=== PATIENT | male | born 1975 | race Caucasian/White ===

== ENCOUNTER → 2016-11-13 | Outpatient (CLI) | payer OTHER ==
[2016-11-13 12:59] LABS: ALBUMIN 4.2 GM/DL (3.2-5.2); ALBUMIN/GLOBULIN RATIO 1.27 (1.00-1.93); ALKALINE PHOSPHATASE 58 U/L (45-117); ALT/SGPT 51 U/L (12-78); ANION GAP 5 MEQ/L (8-16); AST/SGOT 24 U/L (15-37); BILIRUBIN,TOTAL 0.5 MG/DL (0.2-1.0); BLOOD UREA NITROGEN 18 MG/DL (7-18); CALCIUM LEVEL 9.1 MG/DL (8.5-10.1); CARBON DIOXIDE LEVEL 32 MEQ/L (21-32); CHLORIDE LEVEL 106 MEQ/L (98-107); CHOLESTEROL LEVEL 174 MG/DL (<200); CREATININE FOR GFR 1.01 MG/DL (0.70-1.30); GLOMERULAR FILTRATION RATE > 60.0 (>60); GLUCOSE, FASTING 113 MG/DL (70-105); MAGNESIUM LEVEL 2.2 MG/DL (1.8-2.4); POTASSIUM SERUM 4.4 MEQ/L (3.5-5.1); SODIUM LEVEL 143 MEQ/L (136-145); TOTAL PROTEIN 7.5 GM/DL (6.4-8.2); TRIGLYCERIDES LEVEL 209 MG/DL (<150); URIC ACID 8.8 MG/DL (3.5-7.2)
== END ==
LOC: M WUC 09:55
PROVIDERS: ATTEND Physician Assistant
DX: I10 Essential (primary) hypertension (principal)

== ENCOUNTER → 2016-12-02 | Outpatient (CLI) | payer OTHER | LOC: M WUC 11:20 | PROVIDERS: ATTEND Physician Assistant | DX: R73.02 Impaired glucose tolerance (oral) (principal); E79.0 Hyperuricemia without signs of inflammatory arthritis and tophaceous disease; I10 Essential (primary) hypertension ==

== ENCOUNTER → 2016-12-02 | Outpatient (CLI) | payer OTHER | LOC: M WUC 11:15 | PROVIDERS: ATTEND Urology | DX: Z12.5 Encounter for screening for malignant neoplasm of prostate (principal) ==

== ENCOUNTER → 2017-07-05 | Outpatient (CLI) | payer OTHER ==
[2017-07-05 16:52] LABS: HEMATOCRIT 43.2 % (42.0-52.0); HEMOGLOBIN 14.3 g/dl (14.0-18.0); MEAN CORPUSCULAR HGB CONC 33.1 g/dl (32.0-36.5); MEAN CORPUSCULAR VOLUME 84.7 fl (80.0-96.0); PLATELET COUNT, AUTOMATED 290 10^3/uL (150-450); RED CELL DISTRIBUTION WIDTH 12.3 % (11.5-14.5); WHITE BLOOD COUNT 7.2 10^3/uL (4.0-10.0)
[2017-07-05 17:30] LABS: ERYTHROCYTE SEDIMENTATION RATE 6 mm/hr (0-15)
[2017-07-05 17:34] LABS: ALBUMIN 4.2 GM/DL (3.2-5.2); ALBUMIN/GLOBULIN RATIO 1.35 (1.00-1.93); ALKALINE PHOSPHATASE 57 U/L (45-117); ALT/SGPT 48 U/L (12-78); ANION GAP 5 MEQ/L (8-16); AST/SGOT 19 U/L (7-37); BILIRUBIN,TOTAL 0.4 MG/DL (0.2-1.0); BLOOD UREA NITROGEN 15 MG/DL (7-18); C REACTIVE PROTEIN QUANTITATIV < 0.30 MG/DL (0.00-0.30); CALCIUM LEVEL 9.2 MG/DL (8.5-10.1); CARBON DIOXIDE LEVEL 31 MEQ/L (21-32); CHLORIDE LEVEL 106 MEQ/L (98-107); CHOLESTEROL LEVEL 183 MG/DL (<200); CHOLESTEROL RISK RATIO 3.588 (<5); CREATININE FOR GFR 0.98 MG/DL (0.70-1.30); FREE T4 0.76 NG/DL (0.76-1.46); GLOMERULAR FILTRATION RATE > 60.0 (>60); GLUCOSE, FASTING 102 MG/DL (70-100); HDL CHOLESTEROL 51 MG/DL (>40); LDL CHOLESTEROL 58.4 MG/DL (<100); NON-HDL-C 132 MG/DL; POTASSIUM SERUM 4.3 MEQ/L (3.5-5.1); RHEUMATOID FACTOR QUANT < 10.0 IU/ML (0-15.0); SODIUM LEVEL 142 MEQ/L (136-145); THYROID STIMULATING HORMONE 0.877 uIU/ML (0.358-3.740); TOTAL PROTEIN 7.3 GM/DL (6.4-8.2); TRIGLYCERIDES LEVEL 368 MG/DL (<150)
[2017-07-05 17:36] LABS: TOTAL 25(OH) VITAMIN D 31.6 NG/ML (30.0-100.0)
[2017-07-08 00:06] LABS: CYCLIC CITRULLINATED PEPTIDE 5 units (0-19)
[2017-07-08 00:06] LABS: ANTI DOUBLE STRAND-DNA AB <1 IU/mL (0-9); ANTINUCLEAR ANTIBODIES DIRECT Positive (Negative); RNP ANTIBODIES <0.2 AI (0.0-0.9); SJOGREN'S ANTI SS-A 0.3 AI (0.0-0.9); SJOGREN'S ANTI SS-B 1.4 AI (0.0-0.9); SMITH ANTIBODIES <0.2 AI (0.0-0.9); TESTOSTERONE FREE (DIRECT) 6.8 pg/mL (6.8-21.5)
== END ==
LOC: M WUC 10:58
DX: I10 Essential (primary) hypertension (principal); M79.671 Pain in right foot; E55.9 Vitamin D deficiency, unspecified
CPT/HCPCS: 84403

== ENCOUNTER → 2017-09-15 | Outpatient (CLI) | payer OTHER ==
[2017-09-15 15:07] LABS: BASO # 0.1 10^3/uL (0.0-0.2); EOS # 0.2 10^3/uL (0.0-0.50); EOS % 2.8 % (0.0-3.0); HEMATOCRIT 42.3 % (42.0-52.0); HEMOGLOBIN 14.3 g/dl (13.5-17.5); IMMATURE GRANULOCYTE % 0.3 % (0-3.0); LYMPH # 2.3 10^3/uL (1.5-4.5); LYMPH % 32.7 % (24.0-44.0); MEAN CORPUSCULAR HEMOGLOBIN 28.6 pg (27.0-33.0); MEAN CORPUSCULAR HGB CONC 33.8 g/dl (32.0-36.5); MEAN CORPUSCULAR VOLUME 84.6 fl (80.0-96.0); MONO # 0.6 10^3/uL (0.0-0.8); MONO % 8.4 % (0.0-5.0); NEUTROPHILS # 3.8 10^3/uL (1.8-7.7); NEUTROPHILS % 54.8 % (36.0-66.0); PLATELET COUNT, AUTOMATED 289 10^3/uL (150-450); RED CELL DISTRIBUTION WIDTH 12.3 % (11.5-14.5); WHITE BLOOD COUNT 6.9 10^3/uL (4.0-10.0)
[2017-09-15 15:27] LABS: ALBUMIN 4.3 GM/DL (3.2-5.2); ALBUMIN/GLOBULIN RATIO 1.39 (1.00-1.93); ALKALINE PHOSPHATASE 56 U/L (45-117); ALT/SGPT 61 U/L (12-78); ANION GAP 6 MEQ/L (8-16); AST/SGOT 28 U/L (7-37); BILIRUBIN,TOTAL 0.6 MG/DL (0.2-1.0); BLOOD UREA NITROGEN 15 MG/DL (7-18); CARBON DIOXIDE LEVEL 30 MEQ/L (21-32); CHLORIDE LEVEL 104 MEQ/L (98-107); CK-MB VALUE MASS 2.4 NG/ML (<3.6); CPK CREATINE PHOSPHOKINASE 383 U/L (39-308); CREATININE FOR GFR 0.94 MG/DL (0.70-1.30); FREE T4 0.94 NG/DL (0.76-1.46); GLOMERULAR FILTRATION RATE > 60.0 (>60); GLUCOSE, FASTING 135 MG/DL (70-100); MB/CK RELATIVE INDEX 0.62 (< OR =4); POTASSIUM SERUM 4.4 MEQ/L (3.5-5.1); SODIUM LEVEL 140 MEQ/L (136-145); THYROID STIMULATING HORMONE 0.648 uIU/ML (0.358-3.740); TOTAL PROTEIN 7.4 GM/DL (6.4-8.2)
[2017-09-15 16:16] LABS: TROPONIN I < 0.02 NG/ML (< 0.10)
[2017-09-15 16:23] LABS: ERYTHROCYTE SEDIMENTATION RATE 3 mm/hr (0-15)
== END ==
LOC: M WUC 12:49
DX: R07.9 Chest pain, unspecified (principal)
CPT/HCPCS: 82550

== ENCOUNTER → 2017-09-26 | Outpatient (CLI) | payer OTHER ==
[2017-09-26 17:20] LABS: URIC ACID 5.8 MG/DL (3.5-7.2)
== END ==
LOC: M WUC 13:25
DX: M79.671 Pain in right foot (principal)
CPT/HCPCS: 84550

== ENCOUNTER → 2018-03-10 | Outpatient (CLI) | payer OTHER ==
[2018-03-10 14:07] LABS: ERYTHROCYTE SEDIMENTATION RATE 7 mm/hr (0-15)
[2018-03-12 00:08] LABS: TESTOSTERONE FREE (DIRECT) 5.4 pg/mL (6.8-21.5)
== END ==
LOC: M WUC 12:01
DX: E29.1 Testicular hypofunction (principal); G89.29 Other chronic pain
CPT/HCPCS: 84403

== ENCOUNTER → 2018-03-10 | Outpatient (CLI) | payer OTHER ==
[2018-03-10 13:50] LABS: URIC ACID 7.4 MG/DL (3.5-7.2)
== END ==
LOC: M WUC 11:56
DX: M10.072 Idiopathic gout, left ankle and foot (principal)
CPT/HCPCS: 84550

== ENCOUNTER → 2018-08-09 | Outpatient (CLI) | payer OTHER ==
[~2018-08-09] MED LIST: BENA10TA PO; OMEP40CA2 PO; RANI150T PO; VIIB40TA PO; ZYRT10CA PO
[2018-08-09 17:15] LABS: ALBUMIN 4.3 GM/DL (3.2-5.2); ALT/SGPT 61 U/L (12-78); BILIRUBIN,DIRECT < 0.1 MG/DL (0.0-0.2); BILIRUBIN,TOTAL 0.4 MG/DL (0.2-1.0); TOTAL PROTEIN 7.2 GM/DL (6.4-8.2)
[2018-08-09 17:34] LABS: HEMATOCRIT 46.4 % (42.0-52.0); HEMOGLOBIN 14.9 g/dl (13.5-17.5)
[2018-08-12 00:06] LABS: TESTOSTERONE FREE (DIRECT) 5.7 pg/mL (6.8-21.5)
== END ==
LOC: M WUC 10:38
PROVIDERS: ATTEND Nurse Practitioner Family
DX: E29.1 Testicular hypofunction (principal)

== ENCOUNTER → 2019-05-17 | Outpatient (CLI) | payer OTHER ==
[~2019-05-17] MED LIST changes: -OMEP40CA2 PO; +OMEP40CA97 PO
== END ==
LOC: M WUC 14:36
PROVIDERS: ATTEND Nurse Practitioner Family
DX: E29.1 Testicular hypofunction (principal)

== ENCOUNTER → 2019-07-10 | Outpatient (CLI) | payer OTHER ==
[2019-07-10 15:36] LABS: HEMATOCRIT 42.8 % (42.0-52.0); HEMOGLOBIN 14.1 g/dl (13.5-17.5)
== END ==
LOC: M WUC 13:59
PROVIDERS: ATTEND Nurse Practitioner Family
DX: E29.1 Testicular hypofunction (principal)

== ENCOUNTER → 2019-10-30 | Outpatient (CLI) | payer OTHER ==
[2019-10-30 16:33] LABS: HEMATOCRIT 47.1 % (42.0-52.0); HEMOGLOBIN 15.6 g/dl (13.5-17.5)
[2019-11-01 15:07] LABS: TESTOSTERONE FREE (DIRECT) 3.3 pg/mL (6.8-21.5)
== END ==
LOC: M WUC 12:10
PROVIDERS: ATTEND Nurse Practitioner Family
DX: E29.1 Testicular hypofunction (principal); Z12.5 Encounter for screening for malignant neoplasm of prostate

== ENCOUNTER → 2020-12-10 | Outpatient (CLI) | payer OTHER ==
[~2020-12-10] MED LIST changes: +OMEP40CA4 PO; -OMEP40CA97 PO
[2020-12-10 13:23] LABS: HEMATOCRIT 45.4 % (42.0-52.0); HEMOGLOBIN 15.2 g/dl (13.5-17.5)
[2020-12-11 19:06] LABS: TESTOSTERONE FREE (DIRECT) 2.2 pg/mL (6.8-21.5)
== END ==
LOC: M WUC 09:55
PROVIDERS: ATTEND Nurse Practitioner Family
DX: E29.1 Testicular hypofunction (principal)

== ENCOUNTER → 2021-07-22 | Outpatient (CLI) | payer OTHER ==
[2021-07-22 12:52] LABS: HEMATOCRIT 45.5 % (42.0-52.0); HEMOGLOBIN 15.3 g/dl (13.5-17.5)
[2021-07-23 20:07] LABS: PSA TOTAL 0.8 ng/mL (0.0-4.0); TESTOSTERONE FREE (DIRECT) 12.1 pg/mL (6.8-21.5)
== END ==
LOC: M WUC 08:46
PROVIDERS: ATTEND Urology
DX: R79.89 Other specified abnormal findings of blood chemistry (principal)

== ENCOUNTER → 2021-08-14 | Outpatient (REF) | payer OTHER ==
[2021-08-14 16:59] LABS: BASO % 0.6 % (0.0-1.0); EOS # 0.3 10^3/uL (0.0-0.5); EOS % 4.4 % (0.0-3.0); HEMATOCRIT 44.6 % (42.0-52.0); LYMPH # 2.4 10^3/uL (1.5-5.0); MEAN CORPUSCULAR HEMOGLOBIN 29.2 pg (27.0-33.0); MEAN CORPUSCULAR HGB CONC 33.6 g/dl (32.0-36.5); MEAN CORPUSCULAR VOLUME 86.8 fl (80.0-96.0); MONO # 0.6 10^3/uL (0.0-0.8); MONO % 8.1 % (2.0-8.0); NEUTROPHILS # 3.7 10^3/uL (1.5-8.5); NEUTROPHILS % 52.5 % (36.0-66.0); PLATELET COUNT, AUTOMATED 308 10^3/uL (150-450); RED BLOOD COUNT 5.14 10^6/uL (4.30-6.10)
[2021-08-14 17:20] LABS: ALBUMIN 4.4 GM/DL (3.2-5.2); ALT/SGPT 61 U/L (12-78); BILIRUBIN,TOTAL 0.4 MG/DL (0.2-1.0); BLOOD UREA NITROGEN 11 MG/DL (7-18); CALCIUM LEVEL 9.5 MG/DL (8.5-10.1); CARBON DIOXIDE LEVEL 35 MEQ/L (21-32); CHLORIDE LEVEL 104 MEQ/L (98-107); CREATININE FOR GFR 0.82 MG/DL (0.70-1.30); GLOMERULAR FILTRATION RATE > 60.0 (>60); GLUCOSE, FASTING 117 MG/DL (70-100); RHEUMATOID FACTOR QUANT < 10.0 IU/ML (<15.0); SODIUM LEVEL 141 MEQ/L (136-145); TOTAL PROTEIN 7.3 GM/DL (6.4-8.2)
[2021-08-14 18:48] LABS: ERYTHROCYTE SEDIMENTATION RATE 1 mm/hr (0-15)
== END ==
LOC: M SFHCRHEU 13:07
PROVIDERS: ATTEND Internal Medicine Rheumatology
DX: M1A.09X0 Idiopathic chronic gout, multiple sites, without tophus (tophi) (principal); H04.123 Dry eye syndrome of bilateral lacrimal glands; M35.3 Polymyalgia rheumatica

== ENCOUNTER → 2022-07-30 | Outpatient (CLI) | payer BC ==
[~2022-07-30] MED LIST changes: +ALLO10TA PO; +DEXI60CA2 PO; +LEXA1TAB2 PO; +LOSA100T5 PO; +TEST200I14 IM
== END ==
LOC: M LABSMTC 09:50
PROVIDERS: ATTEND Anesthesiology
DX: Z01.818 Encounter for other preprocedural examination (principal); Z20.822 Contact with and (suspected) exposure to COVID-19

== ENCOUNTER 2022-08-03 07:09 | Day surgery (SDC) | payer BC ==
[~2022-08-03] VITALS: Ht 177.8 cm; Wt 129.6 kg
[~2022-08-03 07:09] MED LIST changes: +LIDOCAINE 2% 100MG/5ML SDV (FOR ANES.) As Ordered ONE; +NS 1,000 ML IV ONE; +propofoL 200 MG/20 ML VIAL As Ordered ONE
[2022-08-03] MEDS ORDERED: fentaNYL 100 MCG/2 ML INJECTION As Ordered ONE (07:58)
[2022-08-03] MEDS ORDERED: propofoL 200 MG/20 ML VIAL As Ordered ONE ×2 (08:10→08:36)
[2022-08-03 09:14] VITALS: BP 128/61
== END 2022-08-03 09:17 | disposition home or self-care (01) ==
LOC: M OPP 07:09
PROVIDERS: ATTEND Internal Medicine Gastroenterology
DX: Z12.11 Encounter for screening for malignant neoplasm of colon (principal); Z80.0 Family history of malignant neoplasm of digestive organs; D12.6 Benign neoplasm of colon, unspecified; K64.0 First degree hemorrhoids; K57.30 Diverticulosis of large intestine without perforation or abscess without bleeding; K22.89 Other specified disease of esophagus; K44.9 Diaphragmatic hernia without obstruction or gangrene; K31.89 Other diseases of stomach and duodenum; K29.70 Gastritis, unspecified, without bleeding; M35.00 Sjogren syndrome, unspecified; G47.33 Obstructive sleep apnea (adult) (pediatric); Z99.89 Dependence on other enabling machines and devices; E78.5 Hyperlipidemia, unspecified; I10 Essential (primary) hypertension; Z79.891 Long term (current) use of opiate analgesic; Z79.899 Other long term (current) drug therapy; Z87.19 Personal history of other diseases of the digestive system
CPT/HCPCS: 43239; 45380; 45385; 88305; J3010

== ENCOUNTER 2024-02-14 11:39 | Outpatient (CLI) | payer BC ==
[~2024-02-14] VITALS: Ht 177.8 cm; Wt 116.0 kg
[~2024-02-14 11:39] MED LIST changes: +FERRIC CARBOXYMALTOSE INJ 750 MG in NS 250 ML (>50kg) IV ONE; -LIDOCAINE 2% 100MG/5ML SDV (FOR ANES.) As Ordered ONE; -NS 1,000 ML IV ONE; -propofoL 200 MG/20 ML VIAL As Ordered ONE
[2024-02-14 12:00] VITALS: BP 125/59; O2SAT 96
[2024-02-14] MEDS: FERRIC CARBOXYMALTOSE INJ 750 MG, VIAL MATE ADAPTER 1 EACH in NS 100 ML IV ONE (12:53)
[2024-02-14 14:00] VITALS: BP 147/69; O2SAT 98
== END 2024-02-14 14:00 ==
LOC: M INFU 11:39
PROVIDERS: ATTEND Family Medicine
DX: D50.9 Iron deficiency anemia, unspecified (principal)
CPT/HCPCS: 96365; J1439